=== PATIENT | female | born 1935 | race Caucasian/White ===

== ENCOUNTER → 2017-03-09 | Outpatient (CLI) | payer MEDICARE, MEDICAID ==
[~2017-03-09] MED LIST: AMLO10TA55 PO; ATOR10TA69 PO; CLOP75 PO; EZET10 PO; GABA-529 PO; INSLAN SQ; INSNOV SQ; LISI-618 PO; LOVA20 PO; LUBI24CA2 PO; METH-370 PO; VALS80TA2 PO; [UNRECOGNIZED DRUG - REMARK]; [UNRECOGNIZED DRUG - REMARK]
== END | disposition home or self-care (01) ==
LOC: RADPV 11:38
PROVIDERS: ATTEND Podiatrist Foot & Ankle Surgery
DX: M79.5 Residual foreign body in soft tissue (principal); M19.071 Primary osteoarthritis, right ankle and foot; M20.41 Other hammer toe(s) (acquired), right foot; M85.871 Other specified disorders of bone density and structure, right ankle and foot; Z98.890 Other specified postprocedural states

== ENCOUNTER → 2017-10-26 | Outpatient (CLI) | payer MEDICARE, MEDICAID | END | disposition home or self-care (01) | LOC: RADPV 11:12 | PROVIDERS: ATTEND Podiatrist Foot & Ankle Surgery | DX: M79.89 Other specified soft tissue disorders (principal); S90.451A Superficial foreign body, right great toe, initial encounter; X58.XXXA Exposure to other specified factors, initial encounter; Y93.89 Activity, other specified; Y92.89 Other specified places as the place of occurrence of the external cause; Y99.8 Other external cause status ==

== ENCOUNTER → 2017-11-02 | Outpatient (CLI) | payer MEDICARE, MEDICAID ==
[2017-11-02 10:13] LABS: BASOPHILS % (AUTO) 0.9 % (0.0-2.0); EOSINOPHILS % (AUTO) 1.8 % (1.0-6.0); HEMATOCRIT 38.4 % (36-46); HEMOGLOBIN 13.1 g/dL (12.0-16.0); LYMPHOCYTES # (AUTO) 2.4 K/uL (1.0-4.8); LYMPHOCYTES % (AUTO) 32.2 % (22.0-44.0); MEAN CORPUSCULAR HEMOGLOBIN 30.1 pg (26.0-34.0); MEAN CORPUSCULAR HGB CONC 34.1 G/dL (31.0-37.0); MEAN CORPUSCULAR VOLUME 88 fL (80-100); MONOCYTES # (AUTO) 0.6 K/uL (0.1-1.0); NEUTROPHILS # (AUTO) 4.2 K/uL (1.8-7.7); NEUTROPHILS % (AUTO) 57.1 % (40.0-70.0); PLATELET COUNT (AUTO) 220 K/uL (150-450); RED BLOOD CELL COUNT(AUTO) 4.36 MIL/uL (4.00-5.20); RED CELL DISTRIBUTION WIDTH 13.5 % (11.5-14.5)
[2017-11-02 10:19] LABS: CALCIUM, TOTAL 9.1 mg/dL (8.8-10.5); CREATININE 1.21 mg/dL (0.60-1.30); POTASSIUM 4.5 mmol/L (3.5-5.1)
== END | disposition home or self-care (01) ==
LOC: LABPV 09:21
PROVIDERS: ATTEND Podiatrist Foot & Ankle Surgery
DX: M86.171 Other acute osteomyelitis, right ankle and foot (principal)

== ENCOUNTER → 2018-03-28 | Outpatient (CLI) | payer MEDICARE, MEDICAID ==
[2018-03-28 12:00] LABS: BASOPHILS % (AUTO) 1.1 % (0.0-2.0); EOSINOPHILS % (AUTO) 1.9 % (1.0-6.0); HEMATOCRIT 36.4 % (36-46); HEMOGLOBIN 12.3 g/dL (12.0-16.0); LYMPHOCYTES # (AUTO) 1.8 K/uL (1.0-4.8); LYMPHOCYTES % (AUTO) 28.9 % (22.0-44.0); MEAN CORPUSCULAR HEMOGLOBIN 30.1 pg (26.0-34.0); MEAN CORPUSCULAR HGB CONC 33.7 G/dL (31.0-37.0); MEAN CORPUSCULAR VOLUME 89 fL (80-100); MONOCYTES # (AUTO) 0.5 K/uL (0.1-1.0); MONOCYTES % (AUTO) 8.1 % (2.0-9.0); NEUTROPHILS # (AUTO) 3.7 K/uL (1.8-7.7); PLATELET COUNT (AUTO) 176 K/uL (150-450); RED BLOOD CELL COUNT(AUTO) 4.07 MIL/uL (4.00-5.20); RED CELL DISTRIBUTION WIDTH 13.2 % (11.5-14.5)
[2018-03-28 13:04] LABS: ERYTHROCYTE SEDIMENTATION RATE 33 MM/HR (0-20)
== END | disposition home or self-care (01) ==
LOC: MSR 09:04
PROVIDERS: ATTEND Podiatrist Foot & Ankle Surgery
DX: M19.071 Primary osteoarthritis, right ankle and foot (principal); M86.171 Other acute osteomyelitis, right ankle and foot; E11.40 Type 2 diabetes mellitus with diabetic neuropathy, unspecified; L84 Corns and callosities
CPT/HCPCS: 85651

== ENCOUNTER 2021-01-13 06:00 | Emergency (ER) | payer MEDICARE, MEDICAID ==
[~2021-01-13] VITALS: Ht 160 cm; Wt 54.5 kg
[~2021-01-13 06:00] MED LIST changes: -CLOP75 PO; +CLOP75TA60 PO; -EZET10 PO; +EZET10TA57 PO; +GABA-1216 PO; -LISI-618 PO; +LISI20TA24 PO; -LOVA20 PO; +LOVA20TA73 PO
[2021-01-13] MEDS ORDERED: ACETAMINOPHEN 500 MG TABLET PO ONE (06:45)
[2021-01-13] MEDS ORDERED: BACITRACIN 0.9 GM PACKET OINTMENT TP ONE (06:45)
[2021-01-13] MEDS ORDERED: APIX2.5T PO (06:56)
[2021-01-13] MEDS ORDERED: HYDR25TA84 PO (06:56)
[2021-01-13] MEDS ORDERED: CHOL100044 PO (06:56)
[2021-01-13] MEDS ORDERED: LEVO200 PO (06:56)
[2021-01-13] MEDS ORDERED: DULO-8 PO (06:56)
[2021-01-13] MEDS ORDERED: LOSA25TA21 PO (06:56)
[2021-01-13] MEDS ORDERED: ALEN10TA33 PO (06:56)
[2021-01-13] MEDS ORDERED: FESO4TAB PO (06:56)
[2021-01-13] MEDS ORDERED: LEVO50 PO (06:56)
[2021-01-13] MEDS ORDERED: CALC-1038 PO (06:56)
[2021-01-13 09:00] VITALS: BP 115/64
== END 2021-01-13 09:34 | disposition home or self-care (01) ==
LOC: EMS 06:00
DX: S02.2XXA Fracture of nasal bones, initial encounter for closed fracture (principal); S80.01XA Contusion of right knee, initial encounter; Z88.0 Allergy status to penicillin; Z79.899 Other long term (current) drug therapy; I48.91 Unspecified atrial fibrillation; E11.9 Type 2 diabetes mellitus without complications; I10 Essential (primary) hypertension; Z90.49 Acquired absence of other specified parts of digestive tract; Z90.710 Acquired absence of both cervix and uterus; W19.XXXA Unspecified fall, initial encounter; Y93.89 Activity, other specified; Y92.89 Other specified places as the place of occurrence of the external cause; Y99.8 Other external cause status
CPT/HCPCS: 70450; 70486; 72125; 99285